=== PATIENT | male | born 1970 | race Caucasian/White ===

== ENCOUNTER 2017-02-25 09:49 | Emergency (ER) | payer MEDICAID ==
[2017-02-25] MEDS ORDERED: LIDOCAINE HCL 20 ML VIAL ONE (10:20)
--- NOTE | 2017-02-25 10:20 | ERNOTE ---
Integumentary HPI - Narrative Date of Service: 02/25/17 - General Presenting Symptoms: abscess Time Seen by Provider: 02/25/17 10:07 Source: patient, RN notes reviewed Exam Limitations: no limitations - Immun/Allergies/Home Medications Immunizations: IMMUNIZATION HX Immunizations Up to Date Yes History of Influenza Vaccine Yes Hx Pneumococcal Vaccination Yes Allergies/Adverse Reactions: Allergies Allergy/AdvReac Type Severity Reaction Status Date / Time Penicillins Allergy Unknown Verified 02/25/17 10:03 Home Medications: HOME MEDICATIONS Lisinopril [Zestril] 40 mg PO DAILY 02/25/17 [Last Taken Unknown] - History of Present Illness Narrative: 46 year old male to the ED by private vehicle for an abscess on his upper anterior chest. He reports having a lump for over a year, but in the past few days it has become larger, inflamed and painful. He denies any prior history of abscesses or skin infections. He has been having nausea but denies fevers or chills. Location: Reports: torso Quality: Reports: painful Severity: moderate Exposure: Reports: no cause identified Associated Symptoms: Reports: swelling/mass/lumps, malaise. Denies: blisters, rash, hives, petechiae, edema, fever, headache Prior Treatment: Denies: recently seen, currently on antibiotics Review of Systems - Review of Systems Constitutional: Present: malaise. Absent: recent illness, fever, chills EYE: Present: no symptoms reported ENT: Present: no symptoms reported Respiratory: Absent: shortness of breath, cough Cardiology: Absent: palpitations, edema Gastrointestinal/Abdominal: Present: nausea. Absent: vomiting, abdominal pain, eating less, drinking less Genitourinary: Present: no symptoms reported Musculoskeletal: Absent: muscle pain, joint pain Skin: Present: lesions, lumps. Absent: rash, change in color Neurological: Absent: headache, dizziness/light-headedness Endocrine: Present: no symptoms reported Hematologic/Lymphatic: Absent: easy bruising, easy bleeding Psych: Present: no symptoms reported - Patient's Past Medical History Patient History - Medical: No pertinent hx Patient History - Cardiac/Respiratory: Hypertension Patient History - Cancer: No Hx of Cancer Patient History - Surgical Procedures: Other Patient History - Other: None - Social History Living Situations: home Abuse History: No History of abuse Psych History: No pertinent hx Smoking Status: Current every day smoker Alcohol Use: none Drug Use: none - Immunizations Immunizations Up to Date: Yes Hx Pneumococcal Vaccination: Yes History of Influenza Vaccine: Yes Physical Exam - Physical Exam General Appearance: Present: wd/wn, alert, no apparent distress, anxious Neck: Present: normal inspection, nontender, supple. Absent: lymphadenopathy (R ), lymphadenopathy (L) Respiratory: Present: no respiratory distress, normal breath sounds, no accessory muscle use, lungs clear Cardiovascular/Chest: Present: regular rate, rhythm, no murmur Extremity Exam: Present: normal inspection Neurological Exam: Present: alert, oriented, normal mood/affect, no motor/ sensory deficits Skin Exam: Present: normal color, warm/dry, other - Large inflammed cystic lesion to upper anterior chest ED Progress - Vital Signs Patient's Vital Signs:: I have reviewed the patient's vital signs. Vital Signs: Vital Signs 02/25/17 09:57 Temperature 37.0 C Pulse Rate 91 Respiratory 14 Rate Blood Pressure 146/92 O2 Sat by Pulse 96 Oximetry - Progress/Reassessment Chief Complaint: Abscess Progress:: Improved Procedures Upper Anterior Chest Anesthesia: 1% Lidocaine I & D Prep: betadine prep Blade Size: 11 Findings and Actions: purulent drainage large, probed/breakup loculation, packed with guaze Complications: other - Tolerated poorly Departure Clinical Impression: Sebaceous cyst - Departure Disposition: Home self-care Condition: Good Instructions: Sebaceous Cyst Removal, Care After, Form - Excuse from Work, School, or Physical Activity Additional Instructions: Remove packing in shower and wash wound thoroughly with soap and water - then replace packing Repack wound daily until it is healing enough that you cannot get much packing in the wound Tylenol and or ibuprofen for pain Follow up for fevers, increasing redness around wound or other concerns Referrals: Guille Mendez MD [Primary Care Provider] -
[2017-02-25 10:59] VITALS: BP 124/73
== END 2017-02-25 11:02 | disposition home or self-care (01) ==
LOC: ER 09:49
PROC: 0H95XZZ Drainage of Chest Skin, External Approach (ICD-10-PCS; principal; 2017-02-25)
DX: N60.89 Other benign mammary dysplasias of unspecified breast (principal); I10 Essential (primary) hypertension; F17.200 Nicotine dependence, unspecified, uncomplicated